=== PATIENT | male | born 1975 | race Caucasian/White ===

== ENCOUNTER 2017-07-13 16:14 | Emergency (ER) | payer SELFPAY ==
--- NOTE | 2017-07-13 16:51 | Emergency Department Record ---
History of Present Illness - General Chief Complaint: Laceration(s) Stated Complaint: LAC ABOVE RT EYE,RT KNEE PAIN,LT WRIST PAIN Time Seen by Provider: 07/13/17 16:37 Source: Patient Mode of Arrival: Ambulatory Limitations: No limitations - History of Present Illness Initial Commments: The patient is here due to falling 10-12 feet off a roof and injuring his R face around his eye. He sustained a laceration above and below the eye. Additionally he did land on his feet and now he has mild R knee, L wrist and lumbar pain. There was no LOC and he denies any ELLIOTT or neck pain. The patient also denies any visual changes and his Td is UTD. Onset/Timin -: Minutes(s) Location: Face Place: Home Context: Accidental, Fall Associated Symptoms: Other - [place] Coma Scale Eye Response: (4) Open spontaneously Motor Response: (6) Obeys commands Verbal Response: (5) Oriented Mere Total: 15 - Related Data Hx Tetanus Toxoid Vaccination: Yes Year of Tetanus Vaccination: 2014 Patient Tetanus UTD (within 5 yrs): Yes Previous Rx's Medication Instructions Recorded Amoxicillin/Potassium Clav 1 each PO BID #14 tablet 07/13/17 [Augmentin 875Mg/125Mg] Allergies Allergy/AdvReac Type Severity Reaction Status Date / Time No Known Drug Allergies Allergy Verified 07/13/17 16:20 Travel Screening - Travel/Exposure Within Last 30 Days Have you traveled within the last 30 days?: No - Travel/Exposure Within Last Year Have you traveled outside the [place] in the last year?: No - Additonal Travel Details Have you been exposed to anyone with a communicable illness?: No - Travel Symptoms Symptom Screening: None Review of Systems Constitutional: Denies: Chills, Fever Past Medical History - SOCIAL HISTORY Smoking Status: Current every day smoker Alcohol Use: None Drug Use: None - RESPIRATORY Hx Respiratory Disorders: No - CARDIOVASCULAR Hx Cardio Disorders: No - NEURO Hx Neuro Disorders: No - GI Hx GI Disorders: No - Hx Genitourinary Disorders: No - ENDOCRINE Hx Endocrine Disorders: No - MUSCULOSKELETAL Hx Musculoskeletal Disorders: No - PSYCH Hx Psych Problems: No - HEMATOLOGY/ONCOLOGY Hx Hematology/Oncology Disorders: No Family Medical History Any Significant Family History?: Yes Hx Diabetes: Mother, Brother/Sister, Grandparents Physical Exam - General General Appearance: Alert, Oriented x3, Cooperative, No acute distress - Head Head exam: Normocephalic. negative: Atraumatic Head exam detail: Laceration (above the R eye and very minimally below the eye.) Image of Face/Head: 1 - 2 cm lac. 2 - 1.5 cm lac. - Eye Eye exam: Normal appearance, PERRL, EOMI - ENT Throat exam: Normal inspection. negative: Tonsillar erythema, Tonsillar exudate - Neck Neck exam: Normal inspection, Full ROM. negative: Tenderness - Respiratory Respiratory exam: Normal lung sounds bilaterally. negative: Respiratory distress - Cardiovascular Cardiovascular Exam: Regular rate, Normal rhythm, Normal heart sounds - GI/Abdominal GI/Abdominal exam: Soft, Normal bowel sounds. negative: Distended, Guarding, Rebound, Rigid, Tenderness - Extremities Extremities exam: Normal inspection, Full ROM, Tenderness (There is mild L wrist and R knee tenderness.) - Back Back exam: Reports: Normal inspection, Vertebral tenderness (mild L 3-5.) Course Vital Signs 07/13/17 16:20 Temperature 97.9 F Pulse Rate 86 Respiratory 20 Rate Blood Pressure 145/76 Pulse Ox 99 - Reevaluation(s) Reevaluation #1: Procedure note: The 2 R eye lacs were anesth. with Lido 1% with Epi. The wounds were explored and not down to bone. The wounds were then cleansed with sterile saline and prepped with betadine. The lacs were closed with 5 5.0 nylon sutures to the superior wound and 3 5.0 to the inferior wound. There were no complications. 07/13/17 18:21 Reevaluation #2: The patient is doing very well after the sutures were placed. He denies any ELLIOTT or neck pain. I did explain to him the xrays were all neg and that he did have some sinus disease. Also the L wrist films were not quite adequate but the patient declined to go back for more films. He is to ice and elevate the affected areas and have the sutures removed in 7 days. 07/13/17 18:23 Medical Decision Making - Data Complexity MDM Data: Labs Ordered and/or Reviewed, X-Ray Ordered and/or Reviewed - Radiology Data Radiology results: Report reviewed (All xrays were neg for any acute changes.) Disposition Disposition: Discharge Clinical Impression: Eyebrow laceration Qualifiers: Encounter type: initial encounter Laterality: right Qualified Code(s): S01.111A - Laceration without foreign body of right eyelid and periocular area, initial encounter Disposition: Home, Self-Care Condition: (2) Stable Instructions: Laceration (ED) Additional Instructions: Please take Tylenol or Motrin for pain and watch for signs of infection. Take the Augmentin as directed and have the sutures removed in 10 days. Return to the ER for any worsening problems or issues. Prescriptions: Amoxicillin/Potassium Clav [Augmentin 875Mg/125Mg] 1 each PO BID #14 tablet Forms: Patient Portal Access Time of Disposition: 18:26 Quality - Blood Pressure Screening Does Patient Have Any of the Following: No Blood Pressure Classification: Hypertensive Reading Systolic Measurement: 145 Diastolic Measurement: 76
[2017-07-13 17:32] LABS: URINE APPEARANCE CLEAR; URINE BILIRUBIN NEGATIVE (NEGATIVE); URINE BLOOD TRACE-L (NEGATIVE); URINE COLOR YELLOW; URINE GLUCOSE (UA) NEGATIVE (NEGATIVE); URINE KETONE NEGATIVE (NEGATIVE); URINE LEUKOCYTE ESTERASE NEGATIVE (NEGATIVE); URINE NITRITE NEGATIVE (NEGATIVE); URINE PROTEIN NEGATIVE (NEGATIVE); URINE UROBILINOGEN 0.2 E.U./dL (0.20 - 1.00)
[2017-07-13 17:40] LABS: URINE EPITHELIAL CELLS NONE SEEN (FEW); URINE WBC NONE SEEN (0-2/hpf)
[2017-07-13] MEDS: IBUPROFEN 600 MG TABLET PO ONE (18:21)
--- NOTE | 2017-07-14 10:20 | CT SCAN REPORT ---
EXAM: EMERGENCY HEAD CT WITHOUT CONTRAST HISTORY: PATIENT FELL OFF HIS ROOF WITH LACERATION OVER RIGHT EYE. NO LOSS OF CONSCIOUSNESS. TECHNIQUE: Axial CT scan of the head was performed without IV contrast. Comparison: None. Encounter: Initial. FINDINGS: No acute intracranial hemorrhage identified. No focal mass effect or midline shift apparent. No definite acute infarct or intracranial mass lesion seen. There is soft tissue swelling in the preseptal space anterior to the right orbit. There is complete opacification of the visualized right maxillary sinus and somewhat lobulated membrane thickening in the left maxillary sinus. Considerable opacification of the ethmoids bilaterally and also in the right frontal sinus. The sphenoid sinus is relatively clear with only minor membrane thickening. This various paranasal sinus opacification could be acute or chronic with no definite air fluid level seen. The visualized mastoids appear clear. No depressed calvarial fracture evident. IMPRESSION: 1. NO DEFINITE ACUTE INTRACRANIAL HEMORRHAGE OR FOCAL MASS EFFECT EVIDENT. 2. OPACIFICATION TO VARIOUS DEGREES OF SEVERAL OF THE PARANASAL SINUSES DETAILED ABOVE. 3. SOME PRESEPTAL SOFT TISSUE SWELLING ANTERIOR TO THE RIGHT ORBIT. JOB NUMBER: [id number] [facility]
--- NOTE | 2017-07-14 10:51 | RADIOLOGY REPORT ---
EXAM: RIGHT KNEE HISTORY: PATIENT FELL OFF HIS ROOF, PAIN RIGHT KNEE. TECHNIQUE: Three views of the right knee were obtained. Comparison: None. Encounter: Initial. FINDINGS: The right knee appears intact with no definite fracture or dislocation identified. No joint effusion identified. IMPRESSION: THE RIGHT KNEE APPEARS ESSENTIALLY NEGATIVE WITH NO DEFINITE FRACTURE IDENTIFIED. JOB NUMBER: [id number] [facility]
--- NOTE | 2017-07-14 10:53 | RADIOLOGY REPORT ---
EXAM: LEFT WRIST HISTORY: PATIENT FELL OFF HIS ROOF WITH LEFT WRIST PAIN. TECHNIQUE: Four views of the left wrist were obtained. Comparison: None. Encounter: Initial. FINDINGS: No definite fracture or dislocation identified. A true lateral view , however, is not provided. If symptoms persist, short term follow-up suggested including a true lateral view. IMPRESSION: THIS STUDY IS LIMITED WITH NO TRUE LATERAL VIEW OBTAINED. VISUALIZED NO DEFINITE FRACTURE OR DISLOCATION EVIDENT. JOB NUMBER: [id number] [facility]TD[facility]
--- NOTE | 2017-07-14 11:05 | RADIOLOGY REPORT ---
EXAM: LUMBAR SPINE, THREE VIEWS HISTORY: PATIENT FELL OFF HIS ROOF TODAY WITH BACK PAIN. TECHNIQUE: AP, translumbar lateral, and lumbosacral lateral views of the lumbar spine were obtained. Comparison: None. Encounter: Initial. FINDINGS: There is a somewhat transitional S1 segment. Mild narrowing of the L5-S1 interspace. No definite fracture of the lumbar spine identified. The pedicles appear intact. Slight tilting of the spine to the right which may be due to positioning or spasm. IMPRESSION: 1. SLIGHT TILTING OF THE LUMBAR SPINE TO THE RIGHT. 2. MILD NARROWING OF THE LUMBOSACRAL INTERSPACE WITH A SOMEWHAT TRANSITIONAL S1 SEGMENT. JOB NUMBER: [id number] [facility]
== END 2017-07-13 18:34 | disposition home or self-care (01) ==
LOC: ER 16:14
DX: S01.111A Laceration without foreign body of right eyelid and periocular area, initial encounter (principal); S01.411A Laceration without foreign body of right cheek and temporomandibular area, initial encounter; M54.5 Low back pain; M25.561 Pain in right knee; R68.84 Jaw pain; W17.89XA Other fall from one level to another, initial encounter; Y92.008 Other place in unspecified non-institutional (private) residence as the place of occurrence of the external cause; F17.210 Nicotine dependence, cigarettes, uncomplicated
CPT/HCPCS: 12013; 70450; 72100; 81001; 99283; 99284